=== PATIENT | female | born 1980 | race American Indian/Alaskan Native ===

== ENCOUNTER 2021-10-31 07:16 | Emergency (ER) | payer OTHER ==
[2021-10-31] MEDS ORDERED: HYDROcodone/ACETAMINOPHEN 5-325 MG TAB PO ONE (12:39)
[2021-10-31] MEDS ORDERED: KETOROLAC 60 MG/2 ML INJ IM ONE (12:39)
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
[2021-10-31 16:06] VITALS: BP 132/89
== END 2021-10-31 16:06 | disposition home or self-care (01) ==
LOC: ED 07:16
DX: M54.2 Cervicalgia (principal); M54.9 Dorsalgia, unspecified; M25.511 Pain in right shoulder; V89.2XXA Person injured in unspecified motor-vehicle accident, traffic, initial encounter; Y93.89 Activity, other specified; Y92.89 Other specified places as the place of occurrence of the external cause; Y99.8 Other external cause status
CPT/HCPCS: 70450; 70490; 72070; 72100; 73030; 96372; 99284; J1885